=== PATIENT | male | born 1955 | race Hispanic/Latino ===

== ENCOUNTER 2018-01-30 13:31 | Outpatient (CLI) | payer OTHER ==
--- NOTE | 2018-01-30 23:50 | XRay Report ---
FINAL REPORT PROCEDURE: XR KNEE 3V RT TECHNIQUE: RIGHT knee radiographs, AP, lateral and sunrise views. CPT 61108 HISTORY: PAIN IN RIGHT KNEE COMPARISON: No prior studies are available for comparison. FINDINGS: Fracture (s) and/or Dislocation(s): None . Alignment: Normal . Joint space(s): Normal . Soft tissues: There is prepatellar soft tissue swelling.. Bone mineralization: Normal . Foreign bodies: None . IMPRESSION: There is no acute bony abnormality. There is prepatellar soft tissue swelling. There is no joint effusion.
--- NOTE | 2018-01-30 23:51 | XRay Report ---
FINAL REPORT PROCEDURE: XR SHOULDER 2+V RT TECHNIQUE: Right shoulder radiographs including AP views in internal and external rotation and abduction. CPT 90408 HISTORY: PAIN IN RIGHT SHOULDER COMPARISON: No prior studies are available for comparison. FINDINGS: Fracture (s) and/or Dislocation(s): None . Joint space(s): Normal . Soft tissues: Normal . Bone mineralization: Normal . Foreign bodies: None . IMPRESSION: Normal Examination
== END 2018-01-30 13:32 | disposition home or self-care (01) ==
LOC: XRAY 13:31
PROVIDERS: ATTEND Family Medicine
DX: M25.561 Pain in right knee (principal); M25.511 Pain in right shoulder; M79.89 Other specified soft tissue disorders